=== PATIENT | female | born 1970 | race Caucasian/White ===

== ENCOUNTER 2017-04-17 09:19 | Day surgery (SDC) | payer BC ==
[2017-04-13 10:25] VITALS: BMI 20.5
[~2017-04-17 09:19] MED LIST: LACTATED RINGERS 1,000 ML IV SCH; ONDANSETRON 4 MG/2 ML VIAL IVP PRN; Pre Op ABX Message 1 EACH MISC MISCELLANE ONE
[2017-04-17] MEDS ORDERED: LIDOCAINE 1% 20 ML VIAL (10MG/ML) FOR IV START INTRADERMA ONE (10:10)
[2017-04-17] MEDS ORDERED: MIDAZOLAM 2 MG/2 ML VIAL ONE (10:46)
[2017-04-17] MEDS ORDERED: LIDOCAINE 1% INJ 10MG/ML (20 ML MDV) ONE (10:46)
[2017-04-17] MEDS ORDERED: SUCCINYLCHOLINE CHLORIDE 100 MG/5 ML SYR IV ONE (10:46)
[2017-04-17] MEDS ORDERED: Acetaminophen-Codeine 300-30mg TAB PO PRN ×2 (10:46)
[2017-04-17] MEDS ORDERED: GLYCOPYRROLATE 0.2 MG/ML 2 ML VIAL ONE (10:46)
[2017-04-17] MEDS ORDERED: fentaNYL (PF) 50 MCG/ML 2 ML AMP ONE (10:46)
[2017-04-17] MEDS ORDERED: NEOSTIGMINE 1 MG/ML 10 ML VIAL ONE (10:46)
[2017-04-17] MEDS ORDERED: PROPOFOL 10 MG/ML 20 ML VIAL IV ONE (10:46)
[2017-04-17] MEDS ORDERED: KETOROLAC 30 MG/ML 1 ML VIAL ONE (10:46)
[2017-04-17] MEDS ORDERED: ROCURONIUM BROMIDE 10 MG/ML 10 ML VIAL IV ONE (10:46)
[2017-04-17] MEDS ORDERED: LIDOCAINE 1% INJ 10MG/ML (10 ML MDV) SQ ONE ×2 (11:15→11:22)
--- NOTE | 2017-04-17 11:43 | P.OP ---
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 Anesthesia: GETA Surgeon: Mariel Fox Estimated Blood Loss (ml): 10 IV fluids (ml): 400 Urine output (ml): 100 Pathology: other (Endometrial curettings) Condition: stable Disposition: PACU Indications for Procedure: Significant dysmenorrhea, menorrhagia. Suspicious for endometriosis, adenomyosis Operative Findings: pelvic congestion syndrome, normal-appearing upper abdomen and pelvis a few endometrial implants were noted Description of Procedure: Patient was taken to the operating room where general anesthesia was obtained without difficulty by the anesthesia department. She was prepped and draped in normal sterile fashion in the dorsal lithotomy position latex free catheter was used to drain the bladder clear yellow urine with speculum placed in posterior vaginal vault the anterior lip of the cervix was visualized and grasped an acorn uterine manipulator was advanced into the cervix as a means to manipulate the uterus during the laparoscopy. Attention was then turned to the patient's abdomen where in the umbilical fold a small skin incision was made through this incision the Veress needle was placed once the Veress needle seen to be in the appropriate position with a drop in CO2 pressure and insufflation of CO2 gas, CO2 insufflation was allowed to occur. 2 L of gas were used to obtain pneumoperitoneum. At this time a 5 mm trocar and sleeve was placed through the skin incision with a mine development engineer scope and placed toward the pneumoperitoneum. At this point the trocar was removed with the sheath remaining in place. The above-noted findings were visualized. Multiple pictures were taken. At this point additional port site was placed, finger breaths from the left ASIS. This is a 5 mm trocar and sleeve placed under direct visualization. Both ovaries were visualized and felt to be normal. The appendix was visualized and normal. The uterus is freely mobile and suspicious for adenomyosis significant pelvic congestion syndrome was noted. All instruments removed from the patient's abdomen and skin sutures were closed with 4-0 Vicryl in a subcuticular fashion. Dermabond was then placed on the incision. Tension was then turned to the patient's vaginal vault acorn uterine manipulator was removed without difficulty. The cervix was then serially dilated to 18-Armenian. Hysteroscope was placed through the cervix and toward the endometrial cavity proliferative endometrium was noted otherwise normal- appearing. The hysteroscope was removed and a sharp curettage was performed until a gritty texture was noted in all 4 quadrants of the endometrial cavity. The specimen wasn't sent to pathology for analysis. The uterine cavity was then sounded to a total of 8 cm a 4 cm cervical length. The NovaSure device was then opened and set to the appropriate measurements length of 4 cm width of 4.5 power of 97 for a time of 2 minutes. After the device had passed the cavity assessment NovaSure was enabled and the cycle was completed per sheet metal shop supervisor's instructions. Afterwards the device was removed without difficulty the single-tooth tenaculum was taken off of the anterior lip of the cervix and hemostasis was appreciated. All counts are correct 2 patient tolerated procedure well and was taking to the recovery room awake and in stable condition.
[2017-04-17] MEDS: HYDROmorphone 0.5 MG/0.5 ML SYRINGE IVP PRN ×2 (12:00→12:15)
[2017-04-17 12:03] VITALS: TEMP 97.4
[2017-04-17 12:05] VITALS: RESP 16
[2017-04-17] MEDS ORDERED: HYDROcodone/APAP 5-325MG 1 EACH TAB PO ONE (13:41)
[2017-04-17 14:30] VITALS: BP 101/67; PULSE 56
[2017-04-18] MEDS ORDERED: MULTIVITAMINS THERA PO SCH (09:00)
== END 2017-04-17 14:50 | disposition home or self-care (01) ==
LOC: OR 09:19
PROVIDERS: ATTEND Obstetrics & Gynecology Obstetrics
DX: N92.0 Excessive and frequent menstruation with regular cycle (principal); N94.6 Dysmenorrhea, unspecified; N94.89 Other specified conditions associated with female genital organs and menstrual cycle; Z80.3 Family history of malignant neoplasm of breast; Z88.0 Allergy status to penicillin
CPT/HCPCS: 58563; 49320; 81025; 88305; J2250; J2710; J2405; J2001 ×2; J3010; J1885; J0330; J2704; J1170

== ENCOUNTER → 2018-02-06 | Outpatient (CLI) | payer BC ==
--- NOTE | 2018-02-08 07:21 | MM ---
Reason for exam: screening (asymptomatic). Last mammogram was performed 2 years and 3 months ago. History: Patient is postmenopausal. Family history of breast cancer in maternal grandfather. Implant Removal of both breasts, 2013. Saline implants, 2001. Physical Findings: A clinical breast exam by your physician is recommended on an annual basis and results should be correlated with mammographic findings. MG 3D Screening Mammo W/Cad Bilateral CC and MLO view(s) were taken. Prior study comparison: November 18, 2015, mammogram, performed at [place]. September 09, 2014, mammogram, performed at [place]. The breast tissue is extremely dense which could obscure a lesion on mammography. No significant changes when compared with prior studies. ASSESSMENT: Negative, BI-RAD 1 RECOMMENDATION: Routine screening mammogram of both breasts. Patient should continue monthly self breast exams. Given the extremely dense breasts consider supplemental screening such as with ultrasound. A negative report should not preclude additional follow up of suspicious palpable abnormalities.
== END | disposition home or self-care (01) ==
LOC: RADMAMWWP 16:09
PROVIDERS: ATTEND Obstetrics & Gynecology Obstetrics
DX: Z12.31 Encounter for screening mammogram for malignant neoplasm of breast (principal); Z80.3 Family history of malignant neoplasm of breast
CPT/HCPCS: 77063; 77067

== ENCOUNTER → 2019-04-17 | Outpatient (CLI) | payer BC ==
--- NOTE | 2019-04-18 11:45 | MM ---
Reason for exam: screening (asymptomatic). Last mammogram was performed 1 year and 2 months ago. History: Patient is postmenopausal. Family history of breast cancer in maternal grandfather. Implant Removal of both breasts, 2013. Saline implants, 2001. Physical Findings: A clinical breast exam by your physician is recommended on an annual basis and results should be correlated with mammographic findings. MG 3D Screening Mammo W/Cad Bilateral CC and MLO view(s) were taken. Prior study comparison: February 06, 2018, bilateral MG 3d screening mammo w/cad. November 18, 2015, mammogram, performed at [place]. The breast tissue is extremely dense which could obscure a lesion on mammography. No suspicious abnormality. No significant changes when compared with prior studies. ASSESSMENT: Negative, BI-RAD 1 RECOMMENDATION: Routine screening mammogram of both breasts in 1 year.
== END | disposition home or self-care (01) ==
LOC: RADMAMWWP 16:08
PROVIDERS: ATTEND Obstetrics & Gynecology Obstetrics
DX: Z08 Encounter for follow-up examination after completed treatment for malignant neoplasm (principal); Z80.3 Family history of malignant neoplasm of breast
CPT/HCPCS: 77063; 77067

== ENCOUNTER → 2020-07-29 | Outpatient (CLI) | payer BC ==
--- NOTE | 2020-07-30 11:37 | MM ---
Reason for exam: screening (asymptomatic). Last mammogram was performed 1 year and 3 months ago. History: Patient is postmenopausal. Family history of breast cancer in maternal grandfather. Implant Removal of both breasts, 2013. Saline implants, 2001. Physical Findings: A clinical breast exam by your physician is recommended on an annual basis and results should be correlated with mammographic findings. MG 3D Screening Mammo W/Cad Bilateral CC and MLO view(s) were taken. Prior study comparison: April 17, 2019, bilateral MG 3d screening mammo w/cad. February 06, 2018, bilateral MG 3d screening mammo w/cad. The breast tissue is extremely dense which could obscure a lesion on mammography. Finding #1: There are 5 mm equal density (isodense) masses in the upper quadrant, central position of both breasts. Finding #2: There are typically benign calcifications in both breasts. ASSESSMENT: Incomplete: need additional imaging evaluation, BI-RAD 0 RECOMMENDATION: Special view mammogram of both breasts. If lesion persists on supplemental views, image directed ultrasound is recommended. [facility] will attempt to contact patient to return for supplemental views and ultrasound if indicated.
== END | disposition home or self-care (01) ==
LOC: RADMAMWWP 15:59
PROVIDERS: ATTEND Obstetrics & Gynecology Obstetrics
DX: Z12.31 Encounter for screening mammogram for malignant neoplasm of breast (principal); Z80.3 Family history of malignant neoplasm of breast
CPT/HCPCS: 77063; 77067

== ENCOUNTER → 2020-08-03 | Outpatient (CLI) | payer BC ==
--- NOTE | 2020-08-03 14:59 | MM ---
Reason for exam: additional evaluation requested from abnormal screening. Last mammogram was performed less than 1 month ago. History: Patient history of other cancer. Family history of breast cancer in maternal grandfather at age 38. Implant Removal of both breasts, 2013. Saline implants, 2001. Took hormonal contraceptives for 7 years beginning at age 20. Physical Findings: Nurse did not find any significant physical abnormalities on exam. MG 3D Work Up W/Cad BRYNN Bilateral spot compression CC, spot compression ML, and ML view(s) were taken. Prior study comparison: July 29, 2020, bilateral MG 3d screening mammo w/cad. April 17, 2019, bilateral MG 3d screening mammo w/cad. The breast tissue is heterogeneously dense. This may lower the sensitivity of mammography. There is no discrete abnormality including area of concern. These results were verbally communicated with the patient and result sheet given to the patient on 08/03/20. ASSESSMENT: Negative, BI-RAD 1 RECOMMENDATION: Return to routine screening mammogram schedule for both breasts.
== END | disposition home or self-care (01) ==
LOC: RADMAMWWP 14:00
PROVIDERS: ATTEND Obstetrics & Gynecology Obstetrics
DX: R92.8 Other abnormal and inconclusive findings on diagnostic imaging of breast (principal)
CPT/HCPCS: 77062; 77066

== ENCOUNTER → 2021-09-08 | Outpatient (CLI) | payer BC ==
--- NOTE | 2021-09-09 13:40 | MM ---
Reason for exam: screening (asymptomatic). Last mammogram was performed 1 year and 1 month ago. History: Patient history of other cancer. Family history of breast cancer in maternal grandfather at age 38. Implant Removal of both breasts, 2013. Saline implants, 2001. Took hormonal contraceptives for 7 years beginning at age 20. Physical Findings: A clinical breast exam by your physician is recommended on an annual basis and results should be correlated with mammographic findings. MG 3D Screening Mammo W/Cad Bilateral CC and MLO view(s) were taken. Prior study comparison: August 03, 2020, bilateral MG 3d work up w/cad BRYNN. July 29, 2020, bilateral MG 3d screening mammo w/cad. The breast tissue is extremely dense which could obscure a lesion on mammography. Stable benign calcifications. There is no discrete abnormality. No significant changes when compared with prior studies. ASSESSMENT: Benign, BI-RAD 2 RECOMMENDATION: Routine screening mammogram of both breasts in 1 year.
== END | disposition home or self-care (01) ==
LOC: RADMAMWWP 16:10
PROVIDERS: ATTEND Obstetrics & Gynecology Obstetrics
DX: Z12.31 Encounter for screening mammogram for malignant neoplasm of breast (principal); Z80.3 Family history of malignant neoplasm of breast
CPT/HCPCS: 77063; 77067